=== PATIENT | male | born 1995 | race Hispanic/Latino ===

== ENCOUNTER 2025-06-22 15:18 | Emergency (ER) | payer MEDICAID, SELFPAY ==
[2025-06-22 15:32] VITALS: BP 118/62; PULSE 78; RESP 16; TEMP 36.8; O2SAT 98; BMI 25.8
--- NOTE | 2025-06-22 15:41 | PC.NURSE ---
Addendum entered by Nasra Cormier RN 06/22/25 15:44: Water also given Original Note: I asked the patient if he wanted to kill himself or anyone else. pt denies HI or SI. Pt given warm blanket,sandwich,cheese,yogurt and granola bar
--- NOTE | 2025-06-22 16:56 | PC.NURSE ---
patient arrived at triage with an 18g IV catheter in his left AC from a previous ER visit. IV was removed during triage and cleaned with an alcohol pad and covered with a gauze and coban wrap.
--- NOTE | 2025-06-22 18:21 | CM.SWNOTE ---
Addendum entered by Moon Casper 06/22/25 19:25: Patient left before being seen to provider, patient wanted to leave to see if his friend was outside, patient was informed by staff that if he left he would need to check in again. Patient chose to leave the ED without being seen. This ELECTRONICS INSTRUCTOR will contact patient's sister if patient returns to the ED. Moon Casper, [facility] Original Note: ED ELECTRONICS INSTRUCTOR Note Patient is 30 y/o male who presents to ED via EMS due to concern for rash on hand and on various parts of body, cellulitus on big left toe, and generalized body aches. Patient reports dx of HIV. It is reported that patient was found at [facility] and a good Yarsani called 911 for patient and he was seeking help. Per EMS, patient has an active warrant and was incarcerated recently for the last month and a half at [facility], the current warrant is out of state. Patient was at [facility] ED twice yesterday and discharged early this morning. Records received and it is reported that patient was positive for Methamphetamine, Amphetamines, Tricyclic antidepressants and MDMA. Patient has reported hx of HIV and syphilis. Patient does not have current PCP provider, Patient has Medicaid Insurance. Per LEONARDA, patient has hx of 14 ED visits in the last 12 months, primarily in [place], [place] and [place], [place]. ELECTRONICS INSTRUCTOR enters room to meet with patient, patient presents as A/Ox4, and anxious. Patient presents with some paranoia, patient denies SI or HI. Patient endorses hx of HI in regards to people that he has been upset with, patient denies knowing where they live and denies any current HI or plans or intent to harm anyone. Patient endorses that he is currently homeless with plans to stay in the area. Patient endorses that he has a sister that resides in [place] by the name of Tung (Ph.# [phone]) and provides her phone number as his primary contact source. Patient states he does not have a phone and he lost his photo ID. Patient denies any local family or supports. Patient endorses desire to get better, patient endorses concern for his medical condition. Patient states that he has food stamps but does not have the food stamp card. Patient denies any current warrant, but states he has court tomorrow that he plans to attend online. Patient endorses concern about where he will stay tonight and asked if law enforcement could be contacted and if he could be taken in and receive assistance to go to court. ELECTRONICS INSTRUCTOR calls non-emergent dispatch, [facility] officer reports that patient was booked at [facility] for about 60 days and released in April, it is reported that patient does not have a local warrant or a local court date. [facility] reports that they cannot assist patient with booking him or assist with half-way. ELECTRONICS INSTRUCTOR calls the [facility] in [place], there is no one to answer the phone. ELECTRONICS INSTRUCTOR contacts the [facility] and it is after business hours. ELECTRONICS INSTRUCTOR provides patient with resources for food, basic needs and half-way. ELECTRONICS INSTRUCTOR encourages patient to get connected with coordinated care. Patient is provided food in the ED, warm blankets and donated clothing. ELECTRONICS INSTRUCTOR discusses calling patient's sister tomorrow regarding setting patient up with a PCP appt, patient indicates agreement and understanding. Patient to be evaluated by ED provider and likely to d/c to community upon medical clearance with resources provided. KATRIN ReynagaSW
--- NOTE | 2025-07-01 18:14 | ED.SKABFB ---
HPI - Skin/Abscess/Foreign Bdy General Chief complaint: Skin/Abscess/Foreign Body Stated complaint: rash Time Seen by Provider: 06/22/25 18:03 Source: patient Mode of arrival: Wheelchair Limitations: no limitations Related Data Allergies Allergy/AdvReac Type Severity Reaction Status Date / Time No Known Drug Allergies Allergy Verified 06/22/25 15:33 Exam Initial Vital Signs Initial Vital Signs: Vital Signs Temperature 98.3 F 06/22/25 15:32 Pulse Rate 78 06/22/25 15:32 Respiratory Rate 16 06/22/25 15:32 Blood Pressure 118/62 06/22/25 15:32 Pulse Oximetry 98 06/22/25 15:32 Oxygen Delivery Method Room Air 06/22/25 15:32 Discharge Plan Departure Patient Disposition: Left Against Medical Advice Clinical Impression: Left against medical advice Stand Alone Forms: Patient Portal/API, Against Med. Advice (Nauruan)
== END 2025-06-22 18:56 | disposition left against medical advice (07) ==
PROVIDERS: Emergency Provider Family Medicine
CPT/HCPCS: 99281